=== PATIENT | female | born 1940 | race Caucasian/White ===

== ENCOUNTER 2020-05-14 23:43 | Emergency (ER) | payer OTHER, MEDICAID ==
[~2020-05-14] VITALS: Ht 157.5 cm; Wt 50.0 kg
[2020-05-15 01:20] LABS: BASOPHILS % 0.6 % (0.0-2.0); EOSINOPHILS % 0.7 % (0.0-5.0); HEMOGLOBIN. 12.4 g/dL (12.0-16.0); LYMPHOCYTES % 20.2 % (20.0-50.0); MEAN CORPUSCULAR VOLUME 92.5 fL (81.0-99.0); MEAN PLATELET VOLUME 7.4 fl (7.4-10.4); MONOCYTES % 6.2 % (2.0-8.0); NEUTROPHILS % 72.3 % (40.0-76.0); PLATELET 239 x1000/uL (130-400); RED CELL DISTRIBUTION WIDTH 13.7 % (11.6-14.6)
[2020-05-15 01:25] LABS: CHLORIDE 107 mEq/L (98-107)
[2020-05-15 01:26] LABS: CLARITY URINE CLOUDY (CLEAR); COLOR URINE YELLOW (YELLOW); KETONES URINE TRACE (NEGATIVE); LEUKOCYTE ESTERASE URINE 1+ (NEGATIVE); NITRITE URINE NEGATIVE (NEGATIVE); OCCULT BLOOD URINE 3+ (NEGATIVE); PROTEIN URINE NEGATIVE (NEGATIVE); SPECIFIC GRAVITY URINE 1.006 (1.005-1.030); UROBILINOGEN URINE 0.2 E.U./dL (0.2-1.0)
[2020-05-15 08:45] VITALS: BP 125/85
== END 2020-05-15 09:30 | disposition home or self-care (01) ==
LOC: ER 23:43
DX: N13.2 Hydronephrosis with renal and ureteral calculous obstruction (principal); K80.20 Calculus of gallbladder without cholecystitis without obstruction; I72.2 Aneurysm of renal artery; I10 Essential (primary) hypertension; Z91.81 History of falling; G89.29 Other chronic pain; M54.5 Low back pain
CPT/HCPCS: 36415; 71045; 74176; 80053; 81003; 85025; 93005; 99285

== ENCOUNTER 2022-07-15 11:30 | Emergency (ER) | payer MEDICARE, MEDICAID ==
[~2022-07-15] VITALS: Ht 152.4 cm; Wt 45.0 kg
[2022-07-15] MEDS ORDERED: ONDANSETRON HCL 4MG/2ML INJ IV STA (11:59)
[2022-07-15 12:45] LABS: BASOPHILS % 0.9 % (0.0-2.0); EOSINOPHILS % 0.6 % (0.0-5.0); HEMATOCRIT. 39.5 % (36.0-48.0); HEMOGLOBIN. 13.5 g/dL (12.0-16.0); LYMPHOCYTES % 17.5 % (20.0-50.0); MEAN CORPUSCULAR HEMOGLOBIN 32.5 pg (28.0-32.0); MEAN CORPUSCULAR VOLUME 94.9 fL (81.0-99.0); MEAN PLATELET VOLUME 7.9 fl (7.4-10.4); MONOCYTES % 5.8 % (2.0-8.0); NEUTROPHILS % 75.2 % (40.0-76.0); PLATELET 278 x1000/uL (130-400); RED BLOOD CELL COUNT 4.16 mill/uL (4.2-5.4); RED CELL DISTRIBUTION WIDTH 13.8 % (11.6-14.6)
[2022-07-15 13:15] LABS: CHLORIDE 105 mEq/L (98-107)
[2022-07-15 14:02] LABS: CLARITY URINE CLEAR (CLEAR); COLOR URINE YELLOW (YELLOW); KETONES URINE TRACE (NEGATIVE); LEUKOCYTE ESTERASE URINE NEGATIVE (NEGATIVE); NITRITE URINE NEGATIVE (NEGATIVE); OCCULT BLOOD URINE NEGATIVE (NEGATIVE); PROTEIN URINE NEGATIVE (NEGATIVE); SPECIFIC GRAVITY URINE 1.007 (1.005-1.030)
[2022-07-15] MEDS ORDERED: MAGNESIUM/ALUMINUM HYDROXIDE/SIMETHICONE 30ML UDC PO ONE (14:30)
[2022-07-15] MEDS ORDERED: FAMOTIDINE 20MG/2ML VIAL IV ONE (14:30)
[2022-07-15] MEDS ORDERED: IOHEXOL-300 100 ML BOTTLE ONE (17:28)
[2022-07-15 18:20] VITALS: BP 152/69
== END 2022-07-15 18:50 | disposition home or self-care (01) ==
LOC: ER 11:50
DX: K80.50 Calculus of bile duct without cholangitis or cholecystitis without obstruction (principal); I10 Essential (primary) hypertension; Z98.890 Other specified postprocedural states
CPT/HCPCS: 36415; 71045; 74177; 80053; 81003; 83605; 83690; 84484; 85025; 93005; 96374; 96375; 99285; J2405; J3490; Q9967